=== PATIENT | female | born 2000 | race Caucasian/White ===

== ENCOUNTER 2021-05-11 15:21 | Emergency (ER) | payer OTHER ==
[~2021-05-11] VITALS: Ht 152.4 cm; Wt 52.6 kg
[2021-05-11 15:44] VITALS: BP 119/73
--- NOTE | 2021-05-11 15:50 | NUR ---
Patient ambulated to bed 12 with steady/even gait.
--- NOTE | 2021-05-11 15:55 | NUR ---
20 y/o F BIB self with c/c vaginal bleeding, low back pain. Patient A&OX4, ambulatory, reports vaginal cramping x 2 weeks with bleeding that began yesterday; spotting that increased today. Patient also reports R low back pain, 6/10, shooting/intermittent, radiating down right leg and to toes. Pt states pain worsens with movement. Patient states LMP 01/2021; patient states IUD placed in December/2020 and is concerned for possible misplaced IUD. Patient also reports urinary frequency and headache. Patient reports heat pad with minor relief. Denies N/V/D, dizziness, constipation, dysuria. Last BM today normal. Bed locked in lowest position, side rails x 1, call light in reach. PMH/Sx/Meds: Denies LILIANAA
--- NOTE | 2021-05-11 15:59 | NUR ---
YANET Luna is evaluating patient at bedside.
--- NOTE | 2021-05-11 16:15 | NUR ---
THIS RN FEMALE CHAPERONED FOR PELVIC EXAMINATION BY YANET MCKEON
--- NOTE | 2021-05-11 16:36 | NUR ---
US tech at bedside.
--- NOTE | 2021-05-11 17:15 | NUR ---
Patient resting in position of comfort with lights dimmed per request. Respirations even/unlabored; VSS. Bed locked in lowest position, side rails x 1, call light in reach.
[2021-05-11] MEDS ORDERED: IBUPROFEN 400 MG TAB PO ONE (17:40)
[2021-05-11] MEDS ORDERED: CEPH-588 PO (18:08)
[2021-05-11 18:20] VITALS: BP 119/73
--- NOTE | 2021-05-14 17:37 | NUR ---
LATE ENTRY---Culture results received from lab. Results shown to Dr. Strange. No new orders needed at this time. Treatment appropriate. Copy placed in C&S folder.
== END 2021-05-11 18:20 | disposition home or self-care (01) ==
LOC: EDBD 15:21 → MED 15:21
DX: N39.0 Urinary tract infection, site not specified (principal)
CPT/HCPCS: 36415; 76856; 81002; 81025; 87070; 87086; 87205; 87210; 87491; 99284

== ENCOUNTER 2021-07-21 15:35 | Emergency (ER) | payer OTHER ==
[~2021-07-21] VITALS: Ht 152.4 cm; Wt 52.2 kg
[~2021-07-21 15:35] MED LIST: CEPH-588 PO
[2021-07-21 16:07] VITALS: BP 126/49
--- NOTE | 2021-07-21 16:30 | NUR ---
NO NURSE CARE RENDERED. Patient discharged with v/s stable. Written and verbal after care instructions given and explained. Patient alert, oriented and verbalized understanding of instructions. Ambulatory with steady gait. All questions addressed prior to discharge. ID band removed. Patient advised to follow up with PMD. Rx of NONE given. Patient educated on indication of medication including possible reaction and side effects. Opportunity to ask questions provided and answered.
== END 2021-07-21 16:30 | disposition home or self-care (01) ==
LOC: MED 15:35
DX: T83.39XA Other mechanical complication of intrauterine contraceptive device, initial encounter (principal); N94.6 Dysmenorrhea, unspecified
CPT/HCPCS: 99281

== ENCOUNTER 2021-10-09 17:25 | Emergency (ER) | payer MEDICAID, OTHER ==
[~2021-10-09] VITALS: Ht 152.4 cm; Wt 49.9 kg
[2021-10-09 17:36] VITALS: BP 121/80
--- NOTE | 2021-10-09 18:36 | NUR ---
pt here for vaginal bleeding x1 month with foul odor, urine collected and sent.
[2021-10-09] MEDS ORDERED: cefTRIAXone 500 MG in LIDOCAINE MPF 1% 1 ML IM ONE (19:50)
[2021-10-09] MEDS ORDERED: DOXY-690 PO (19:51)
[2021-10-09 20:04] VITALS: BP 122/72
--- NOTE | 2021-10-09 20:07 | NUR ---
PATIENT STABLE DC HOME FEELING WELL VITALS SIGNS IN NORMAL LIMITS ALL DC INSTRUCTION GAVE AND EXPAINED WE RECOMEND TO COMING BACK TO THE ED IF THE SYMPTPMS GET WORSE OR DOESNT IMPROVING //Cody BEAVER
[2021-10-09] MEDS ORDERED: cefTRIAXone 500 MG VIAL ONE (20:11)
[2021-10-09] MEDS ORDERED: LIDOCAINE MPF 1% 5 ML ONE (20:13)
[2021-10-09 20:18] LABS: APPEARANCE,URINE CLEAR (CLEAR); BILIRUBIN,URINE NEGATIVE (NEGATIVE); BLOOD, URINE TRACE-I (NEGATIVE); COLOR,URINE YELLOW (YELLOW); LEUKOCYTE ESTERASE ,URINE TRACE (NEGATIVE); NITRITE, URINE NEGATIVE (NEGATIVE); UGLUCOSE NEGATIVE (NEGATIVE)
[2021-10-09 20:32] LABS: WBC,URINE 0-5 /HPF (0-5)
== END 2021-10-09 20:04 | disposition home or self-care (01) ==
LOC: MED 17:25
DX: N89.8 Other specified noninflammatory disorders of vagina (principal); R30.0 Dysuria; Z11.3 Encounter for screening for infections with a predominantly sexual mode of transmission; Z87.442 Personal history of urinary calculi
CPT/HCPCS: 36415; 81001; 87086; 87210; 87491; 96372; 99283; J0696; J2001